=== PATIENT | male | born 2000 | race Two or more races ===

== ENCOUNTER 2022-07-06 09:00 | Outpatient (CLI) | payer OTHER ==
[~2022-07-06 09:00] MED LIST: GILPHEX TR1 TAB.SR .; TAMIFLU45 MG
== END 2022-07-06 09:10 | disposition home or self-care (01) ==
LOC: TOM 09:00
PROVIDERS: ATTEND Internal Medicine Cardiovascular Disease
DX: M12.9 Arthropathy, unspecified (principal); M46.48 Discitis, unspecified, sacral and sacrococcygeal region; R22.1 Localized swelling, mass and lump, neck